=== PATIENT | male | born 1930 | race African-American/Black ===

== ENCOUNTER 2020-12-05 13:13 | Inpatient (IN) ==
[2020-12-05] MEDS ORDERED: PANTOPRAZOLE 40 MG VIAL IV STA (13:24)
[2020-12-05] MEDS ORDERED: ONDANSETRON 4 MG/2 ML VIAL IV STA (13:24)
[2020-12-05] MEDS ORDERED: SODIUM CHLORIDE 0.9% 500 ML IV STA (13:24)
[2020-12-05] MEDS ORDERED: ALBUTEROL/IPRATROPIUM 3 ML NEB RESP TX STA (13:30)
[2020-12-05 14:18] LABS: Albumin 2.1 G/DL (3.4-5.0); Bilirubin,Total 0.4 MG/DL (0.20-1.00); Calcium 7.9 MG/DL (8.5-10.1); Osmolality,Calculated 302.8 MOS/KG (273-304); Potassium 4.2 MMOL/L (3.5-5.1); Total Protein 4.2 G/DL (6.4-8.2)
[2020-12-05] MEDS ORDERED: SODIUM CHLORIDE 0.9% 1,000 ML IV STA (15:42)
[2020-12-05 16:07] LABS: Basophils % 0.1 % (0.0-0.8); Eosinophils % 0.1 % (0.00-10.9); Hematocrit 20.8 VOL% (42.0-52.0); Hemoglobin 6.9 GM/DL (14.0-18.0); Immature Granulocytes % 2.2 %; Immature Granulocytes Absolute 0.38 #; Lymphocytes # 0.4 10*3/uL (1.4-4.0); Lymphocytes % 2.4 % (21.2-54.2); Mean Corpuscular HGB Conc 33.2 GM/DL (32-36); Mean Corpuscular Volume 91.6 FL (87-102); Mean Platelet Volume 11.5 FL (9.6-12.0); Monocytes % 5.3 % (1.7-12.7); NRBC # 0.09 10*3/uL; Neutrophils % 89.9 % (38.7-73.9); Red Blood Count 2.27 MC/CUMM (3.8-5.5); Red Cell Distribution Width 15.5 % (9.3-17.3); White Blood Count 17.2 T/CUMM (4-12)
[2020-12-05 16:08] LABS: Platelet Count 51 T/CUMM (130-400)
[2020-12-05 16:17] LABS: INR 1.2; PT Patient Result 12.8 SECS (10.5-12.0); Partial Thromboplastin Time 26.3 SECS (23.9-33.8)
[2020-12-05 16:25] LABS: Band Neutrophils 1 % (0-10); Platelet Estimate Decreased; Segmented Neutrophils 97 % (50-85); Total Cells Counted 100
[2020-12-05 16:26] LABS: Hypochromasia 1+; Microcytosis 1+
[2020-12-05] MEDS ORDERED: PIPERACILLIN/TAZOBACTAM 3,375 MG in SODIUM CHLORIDE 0.9% 100 ML IV STA (16:37)
[2020-12-05] MEDS ORDERED: ALBUTEROL 2.5 MG/3 ML NEB RESP TX PRN (17:02)
[2020-12-05] MEDS ORDERED: DEXTROSE 50% 25 GM/50 ML VIAL IV PRN (17:02)
[2020-12-05] MEDS ORDERED: ONDANSETRON 4 MG/2 ML VIAL IV PRN (17:02)
[2020-12-05] MEDS ORDERED: hydrALAZINE 20 MG/1 ML VIAL IV PRN (17:02)
[2020-12-05] MEDS ORDERED: GLUCAGON 1 MG VIAL IM PRN (17:02)
[2020-12-05] MEDS ORDERED: SODIUM CHLORIDE 0.9% 1,000 ML IV PRN (17:15)
[2020-12-05] MEDS ORDERED: cefTRIAXone 1,000 MG in SODIUM CHLORIDE 0.9% 100 ML IV SCH (17:30)
[2020-12-05 17:53] LABS: ABG Base Excess -3.8 MMOL/L (-2.5-2.5); ABG HCO3 21.2 MMOL/L (20-26); ABG Oxygen Saturation 97.6 % (95-100); ABG PCO2 36.1 MM HG (35-48); ABG PH 7.371 (7.35-7.45); ABG PO2 92.7 MM HG (80-95); ABG TCO2 19.8 MMOL/L (23-27)
[2020-12-05] MEDS ORDERED: CIPROFLOXACIN INJ 400 MG/200 ML PREMIX IV SCH (18:00)
[2020-12-05] MEDS: SODIUM CHLORIDE 0.9% 1,000 ML IV SCH (19:00)
[2020-12-05] MEDS: ALBUTEROL/IPRATROPIUM 3 ML NEB RESP TX SCH (19:55)
[2020-12-06] MEDS: cefTRIAXone 1,000 MG in SODIUM CHLORIDE 0.9% 100 ML IV SCH ×2 (00:30→18:12)
[2020-12-06] MEDS: metroNIDAZOLE INJ 500 MG/100 ML PREMIX IV SCH ×3 (00:30→16:42)
[2020-12-06] MEDS: AZITHROMYCIN INJ 500 MG in SODIUM CHLORIDE 0.9% 250 ML IV SCH ×2 (00:30→20:39)
[2020-12-06] MEDS: ALBUTEROL/IPRATROPIUM 3 ML NEB RESP TX SCH ×2 (01:13→08:10)
[2020-12-06 06:15] LABS: Basophils % 0.2 % (0.0-0.8); Eosinophils # 0.1 10*3/uL (0.0-0.87); Eosinophils % 0.4 % (0.00-10.9); Hematocrit 29.3 VOL% (42.0-52.0); Immature Granulocytes % 1.6 %; Immature Granulocytes Absolute 0.37 #; Lymphocytes # 0.6 10*3/uL (1.4-4.0); Lymphocytes % 2.8 % (21.2-54.2); Mean Corpuscular HGB Conc 32.1 GM/DL (32-36); Mean Corpuscular Volume 96.4 FL (87-102); NRBC # 0.08 10*3/uL; Red Cell Distribution Width 15.7 % (9.3-17.3)
[2020-12-06 06:28] LABS: Albumin 2.1 G/DL (3.4-5.0); Bilirubin,Total 0.5 MG/DL (0.20-1.00); Calcium 8.1 MG/DL (8.5-10.1); Osmolality,Calculated 299.7 MOS/KG (273-304); Potassium 4.2 MMOL/L (3.5-5.1); Total Protein 4.5 G/DL (6.4-8.2)
[2020-12-06 06:29] LABS: Red Blood Count 3.04 MC/CUMM (3.8-5.5)
[2020-12-06 06:31] LABS: White Blood Count 22.8 T/CUMM (4-12)
[2020-12-06 06:32] LABS: Hemoglobin 9.4 GM/DL (14.0-18.0)
[2020-12-06 06:33] LABS: Platelet Count 41 T/CUMM (130-400)
[2020-12-06 06:59] LABS: Band Neutrophils 1 % (0-10); Lymphocytes 5 % (20-55); Platelet Estimate Decreased; Segmented Neutrophils 90 % (50-85); Total Cells Counted 100
[2020-12-06] MEDS: PANTOPRAZOLE 40 MG VIAL IV SCH (08:43)
[2020-12-06] MEDS: SODIUM CHLORIDE 0.9% 1,000 ML IV SCH (18:13)
[2020-12-07] MEDS: metroNIDAZOLE INJ 500 MG/100 ML PREMIX IV SCH ×2 (00:41→09:13)
[2020-12-07] MEDS: MORPHINE 2 MG/1 ML SYRINGE IV PRN ×2 (00:45→20:30)
[2020-12-07] MEDS: SODIUM CHLORIDE 0.9% 1,000 ML IV SCH ×2 (04:38→13:41)
[2020-12-07 06:16] LABS: Bilirubin,Total 0.6 MG/DL (0.20-1.00); Calcium 8.1 MG/DL (8.5-10.1); Osmolality,Calculated 298.4 MOS/KG (273-304); Potassium 4.9 MMOL/L (3.5-5.1); Total Protein 4.5 G/DL (6.4-8.2)
[2020-12-07] MEDS: PANTOPRAZOLE 40 MG VIAL IV SCH (09:14)
[2020-12-07 09:42] LABS: PT Patient Result 11.6 SECS (10.5-12.0); Partial Thromboplastin Time 26.8 SECS (23.9-33.8)
[2020-12-07] MEDS: FONDAPARINUX 7.5 MG/0.6 ML SYRINGE SUBCUT SCH (11:05)
[2020-12-07] MEDS: ASCORBIC ACID 500 MG TABLET PO SCH ×2 (16:15→16:57)
[2020-12-07] MEDS: PIPERACILLIN/TAZOBACTAM 3,375 MG in SODIUM CHLORIDE 0.9% 100 ML IV SCH (16:17)
[2020-12-07] MEDS: CHOLECALCIFEROL 1,000 UNIT TABLET PO SCH (16:57)
[2020-12-07] MEDS: ZINC GLUCONATE 50 MG TABLET PO SCH (17:07)
[2020-12-07] MEDS: BUDESONIDE/FORMOTEROL 160-4.5 INHALER 6 GM INH SCH (20:24)
[2020-12-07] MEDS: TAMSULOSIN 0.4 MG CAPSULE PO SCH (20:30)
[2020-12-07] MEDS: SIMVASTATIN 10 MG TABLET PO SCH (20:30)
[2020-12-07] MEDS: carvediloL 25 MG TABLET PO SCH (20:30)
[2020-12-08] MEDS: PIPERACILLIN/TAZOBACTAM 3,375 MG in SODIUM CHLORIDE 0.9% 100 ML IV SCH ×4 (00:44→23:55)
[2020-12-08 04:47] LABS: Basophils % 0.1 % (0.0-0.8); Eosinophils # 0.5 10*3/uL (0.0-0.87); Eosinophils % 4.2 % (0.00-10.9); Hematocrit 29.4 VOL% (42.0-52.0); Hemoglobin 9.2 GM/DL (14.0-18.0); Immature Granulocytes % 0.9 %; Immature Granulocytes Absolute 0.11 #; Lymphocytes # 0.6 10*3/uL (1.4-4.0); Lymphocytes % 4.7 % (21.2-54.2); Mean Corpuscular HGB Conc 31.3 GM/DL (32-36); Mean Corpuscular Volume 92.7 FL (87-102); Mean Platelet Volume 10.4 FL (9.6-12.0); Monocytes % 6.9 % (1.7-12.7); Neutrophils % 83.2 % (38.7-73.9); Red Blood Count 3.17 MC/CUMM (3.8-5.5); Red Cell Distribution Width 17.2 % (9.3-17.3)
[2020-12-08 04:52] LABS: Platelet Count 60 T/CUMM (130-400); White Blood Count 12.1 T/CUMM (4-12)
[2020-12-08 05:11] LABS: Albumin 2.1 G/DL (3.4-5.0); Bilirubin,Total 0.7 MG/DL (0.20-1.00); Calcium 8.1 MG/DL (8.5-10.1); Ferritin 73.3 ng/mL (26-388); Osmolality,Calculated 298.4 MOS/KG (273-304); Potassium 3.9 MMOL/L (3.5-5.1); Total Protein 4.4 G/DL (6.4-8.2)
[2020-12-08 05:14] LABS: Eosinophils 5 % (0-10); Hypochromasia Slight; Lymphocytes 5 % (20-55); Microcytosis Slight; Platelet Estimate Decreased; Segmented Neutrophils 84 % (50-85); Total Cells Counted 100
[2020-12-08] MEDS: IPRATROPIUM 500 MCG/2.5 ML NEB RESP TX SCH ×2 (08:00→12:00)
[2020-12-08] MEDS: FONDAPARINUX 7.5 MG/0.6 ML SYRINGE SUBCUT SCH (08:23)
[2020-12-08] MEDS: ZINC GLUCONATE 50 MG TABLET PO SCH (08:23)
[2020-12-08] MEDS: CHOLECALCIFEROL 1,000 UNIT TABLET PO SCH (08:23)
[2020-12-08] MEDS: TAMSULOSIN 0.4 MG CAPSULE PO SCH ×2 (08:23→20:24)
[2020-12-08] MEDS: PANTOPRAZOLE 40 MG VIAL IV SCH (08:23)
[2020-12-08] MEDS: ASCORBIC ACID 500 MG TABLET PO SCH (08:23)
[2020-12-08] MEDS: carvediloL 25 MG TABLET PO SCH ×2 (08:23→20:24)
[2020-12-08] MEDS: amLODIPine 10 MG TABLET PO SCH (08:24)
[2020-12-08] MEDS: BUDESONIDE/FORMOTEROL 160-4.5 INHALER 6 GM INH SCH ×2 (08:25→20:24)
[2020-12-08] MEDS ORDERED: SODIUM CHLORIDE IV SCH (15:00)
[2020-12-08] MEDS ORDERED: STERILE WATER IV SCH (15:00)
[2020-12-08] MEDS: STERILE WATER IV SCH (20:24)
[2020-12-08] MEDS: SODIUM CHLORIDE IV SCH (20:24)
[2020-12-08] MEDS: SIMVASTATIN 10 MG TABLET PO SCH (20:24)
[2020-12-09 04:30] LABS: Basophils % 0.1 % (0.0-0.8); Eosinophils # 0.5 10*3/uL (0.0-0.87); Eosinophils % 4.7 % (0.00-10.9); Hematocrit 27.3 VOL% (42.0-52.0); Hemoglobin 8.6 GM/DL (14.0-18.0); Immature Granulocytes % 1.1 %; Immature Granulocytes Absolute 0.12 #; Lymphocytes # 0.8 10*3/uL (1.4-4.0); Lymphocytes % 7.1 % (21.2-54.2); Mean Corpuscular HGB Conc 31.5 GM/DL (32-36); Mean Corpuscular Volume 93.2 FL (87-102); Mean Platelet Volume 10.6 FL (9.6-12.0); Monocytes % 7.2 % (1.7-12.7); Neutrophils % 79.8 % (38.7-73.9); Red Blood Count 2.93 MC/CUMM (3.8-5.5); Red Cell Distribution Width 17.2 % (9.3-17.3); White Blood Count 10.8 T/CUMM (4-12)
[2020-12-09 04:33] LABS: Platelet Count 60 T/CUMM (130-400)
[2020-12-09 04:56] LABS: Hypochromasia 1+; Microcytosis 1+; Platelet Estimate Decreased
[2020-12-09 05:04] LABS: Bilirubin,Total 0.6 MG/DL (0.20-1.00); Calcium 8.1 MG/DL (8.5-10.1); Osmolality,Calculated 295.4 MOS/KG (273-304); Potassium 3.7 MMOL/L (3.5-5.1); Total Protein 4.3 G/DL (6.4-8.2)
[2020-12-09] MEDS: IPRATROPIUM 500 MCG/2.5 ML NEB RESP TX SCH (07:05)
[2020-12-09] MEDS: SODIUM CHLORIDE 23.4% CONC INJ 38.5 MEQ in STERILE WATER INJ 1,000 ML IV SCH ×2 (09:06→17:31)
[2020-12-09] MEDS: FONDAPARINUX 7.5 MG/0.6 ML SYRINGE SUBCUT SCH (09:06)
[2020-12-09] MEDS: TAMSULOSIN 0.4 MG CAPSULE PO SCH ×2 (09:07→21:43)
[2020-12-09] MEDS: ZINC GLUCONATE 50 MG TABLET PO SCH (09:07)
[2020-12-09] MEDS: carvediloL 25 MG TABLET PO SCH ×2 (09:07→21:43)
[2020-12-09] MEDS: CHOLECALCIFEROL 1,000 UNIT TABLET PO SCH (09:07)
[2020-12-09] MEDS: ASCORBIC ACID 500 MG TABLET PO SCH (09:07)
[2020-12-09] MEDS: PANTOPRAZOLE 40 MG VIAL IV SCH (09:08)
[2020-12-09] MEDS: BUDESONIDE/FORMOTEROL 160-4.5 INHALER 6 GM INH SCH ×2 (09:08→21:00)
[2020-12-09] MEDS: amLODIPine 10 MG TABLET PO SCH (09:08)
[2020-12-09] MEDS: PIPERACILLIN/TAZOBACTAM 3,375 MG in SODIUM CHLORIDE 0.9% 100 ML IV SCH ×2 (13:09→21:31)
[2020-12-09] MEDS: SIMVASTATIN 10 MG TABLET PO SCH (21:42)
[2020-12-10] MEDS: SODIUM CHLORIDE 23.4% CONC INJ 38.5 MEQ in STERILE WATER INJ 1,000 ML IV SCH ×2 (03:37→14:41)
[2020-12-10 05:30] LABS: Basophils % 0.1 % (0.0-0.8); Eosinophils # 0.5 10*3/uL (0.0-0.87); Eosinophils % 4.2 % (0.00-10.9); Hematocrit 25.3 VOL% (42.0-52.0); Immature Granulocytes % 1.6 %; Immature Granulocytes Absolute 0.19 #; Lymphocytes # 0.7 10*3/uL (1.4-4.0); Lymphocytes % 6.3 % (21.2-54.2); Mean Corpuscular HGB Conc 31.6 GM/DL (32-36); Mean Corpuscular Volume 94.4 FL (87-102); Mean Platelet Volume 11.5 FL (9.6-12.0); Neutrophils % 79.8 % (38.7-73.9); Platelet Count 64 T/CUMM (130-400); Red Blood Count 2.68 MC/CUMM (3.8-5.5); Red Cell Distribution Width 17.3 % (9.3-17.3); White Blood Count 11.6 T/CUMM (4-12)
[2020-12-10 05:59] LABS: Albumin 2.1 G/DL (3.4-5.0); Bilirubin,Total 0.8 MG/DL (0.20-1.00); Calcium 8.1 MG/DL (8.5-10.1); Osmolality,Calculated 290.7 MOS/KG (273-304); Potassium 3.8 MMOL/L (3.5-5.1); Total Protein 4.2 G/DL (6.4-8.2)
[2020-12-10] MEDS: PANTOPRAZOLE 40 MG VIAL IV SCH (09:58)
[2020-12-10] MEDS: TAMSULOSIN 0.4 MG CAPSULE PO SCH ×2 (09:58→20:20)
[2020-12-10] MEDS: amLODIPine 10 MG TABLET PO SCH (09:58)
[2020-12-10] MEDS: ASCORBIC ACID 500 MG TABLET PO SCH (09:58)
[2020-12-10] MEDS: ZINC GLUCONATE 50 MG TABLET PO SCH (09:58)
[2020-12-10] MEDS: CHOLECALCIFEROL 1,000 UNIT TABLET PO SCH (09:58)
[2020-12-10] MEDS: carvediloL 25 MG TABLET PO SCH ×2 (09:59→20:20)
[2020-12-10] MEDS: BUDESONIDE/FORMOTEROL 160-4.5 INHALER 6 GM INH SCH ×2 (10:00→20:20)
[2020-12-10] MEDS ORDERED: TUBERCULIN SKIN TEST 0.1 ML SYRINGE INTRADERM ONE (11:09)
[2020-12-10] MEDS: FONDAPARINUX 7.5 MG/0.6 ML SYRINGE SUBCUT SCH (17:46)
[2020-12-10] MEDS: SIMVASTATIN 10 MG TABLET PO SCH (20:20)
[2020-12-10] MEDS: PIPERACILLIN/TAZOBACTAM 3,375 MG in SODIUM CHLORIDE 0.9% 100 ML IV SCH ×3 (20:20→23:18)
[2020-12-11] MEDS: PIPERACILLIN/TAZOBACTAM 3,375 MG in SODIUM CHLORIDE 0.9% 100 ML IV SCH ×3 (05:05→21:04)
[2020-12-11 05:29] LABS: Basophils % 0.1 % (0.0-0.8); Eosinophils # 0.4 10*3/uL (0.0-0.87); Eosinophils % 3.5 % (0.00-10.9); Hematocrit 22.5 VOL% (42.0-52.0); Hemoglobin 7.2 GM/DL (14.0-18.0); Immature Granulocytes % 2.1 %; Immature Granulocytes Absolute 0.22 #; Lymphocytes # 0.7 10*3/uL (1.4-4.0); Lymphocytes % 6.3 % (21.2-54.2); Mean Corpuscular Volume 93.4 FL (87-102); Mean Platelet Volume 11.3 FL (9.6-12.0); Monocytes % 8.8 % (1.7-12.7); NRBC # 0.03 10*3/uL; Neutrophils % 79.2 % (38.7-73.9); Red Blood Count 2.41 MC/CUMM (3.8-5.5); Red Cell Distribution Width 17.3 % (9.3-17.3); White Blood Count 10.7 T/CUMM (4-12)
[2020-12-11 05:33] LABS: Platelet Count 68 T/CUMM (130-400)
[2020-12-11 05:51] LABS: Eosinophils 1 % (0-10); Hypochromasia 1+; Lymphocytes 6 % (20-55); Microcytosis 1+; Ovalocytes Slight; Platelet Estimate Decreased; Segmented Neutrophils 90 % (50-85); Total Cells Counted 100
[2020-12-11 06:01] LABS: Calcium 7.9 MG/DL (8.5-10.1); Potassium 3.5 MMOL/L (3.5-5.1)
[2020-12-11] MEDS ORDERED: SODIUM CHLORIDE 0.9% 1,000 ML IV PRN (08:58)
[2020-12-11] MEDS: carvediloL 25 MG TABLET PO SCH ×2 (09:45→21:03)
[2020-12-11] MEDS: PANTOPRAZOLE 40 MG VIAL IV SCH (09:45)
[2020-12-11] MEDS: ASCORBIC ACID 500 MG TABLET PO SCH (09:45)
[2020-12-11] MEDS: amLODIPine 10 MG TABLET PO SCH (09:45)
[2020-12-11] MEDS: CHOLECALCIFEROL 1,000 UNIT TABLET PO SCH (09:45)
[2020-12-11] MEDS: BUDESONIDE/FORMOTEROL 160-4.5 INHALER 6 GM INH SCH ×2 (09:45→21:34)
[2020-12-11] MEDS: ZINC GLUCONATE 50 MG TABLET PO SCH (09:45)
[2020-12-11] MEDS: TAMSULOSIN 0.4 MG CAPSULE PO SCH ×2 (09:45→21:04)
[2020-12-11] MEDS: FONDAPARINUX 7.5 MG/0.6 ML SYRINGE SUBCUT SCH (10:16)
[2020-12-11] MEDS: IPRATROPIUM 500 MCG/2.5 ML NEB RESP TX SCH ×4 (19:54→22:17)
[2020-12-11] MEDS: SODIUM CHLORIDE 23.4% CONC INJ 38.5 MEQ in STERILE WATER INJ 1,000 ML IV SCH ×2 (19:55→21:33)
[2020-12-11] MEDS: SIMVASTATIN 10 MG TABLET PO SCH (21:03)
[2020-12-11] MEDS: SODIUM CHLORIDE 0.9% 1,000 ML IV SCH ×2 (22:18→22:19)
[2020-12-11] MEDS: SODIUM CHLORIDE IV SCH (22:19)
[2020-12-11] MEDS: STERILE WATER IV SCH (22:19)
[2020-12-12] MEDS: IPRATROPIUM 500 MCG/2.5 ML NEB RESP TX SCH ×5 (04:28→19:40)
[2020-12-12 05:21] LABS: Basophils % 0.1 % (0.0-0.8); Eosinophils # 0.3 10*3/uL (0.0-0.87); Eosinophils % 2.6 % (0.00-10.9); Hematocrit 22.1 VOL% (42.0-52.0); Hemoglobin 7.1 GM/DL (14.0-18.0); Immature Granulocytes % 2.2 %; Immature Granulocytes Absolute 0.24 #; Lymphocytes # 0.6 10*3/uL (1.4-4.0); Lymphocytes % 5.5 % (21.2-54.2); Mean Corpuscular HGB Conc 32.1 GM/DL (32-36); Mean Corpuscular Volume 94.4 FL (87-102); Mean Platelet Volume 11.3 FL (9.6-12.0); Monocytes % 7.6 % (1.7-12.7); NRBC # 0.02 10*3/uL; Platelet Count 71 T/CUMM (130-400); Red Blood Count 2.34 MC/CUMM (3.8-5.5); Red Cell Distribution Width 17.9 % (9.3-17.3); White Blood Count 11.2 T/CUMM (4-12)
[2020-12-12] MEDS: PIPERACILLIN/TAZOBACTAM 3,375 MG in SODIUM CHLORIDE 0.9% 100 ML IV SCH ×3 (05:25→22:00)
[2020-12-12 05:41] LABS: Osmolality,Calculated 277.5 MOS/KG (273-304); Potassium 3.5 MMOL/L (3.5-5.1)
[2020-12-12 05:42] LABS: Hypochromasia 1+; Microcytosis 1+; Platelet Estimate Decreased
[2020-12-12] MEDS: SODIUM CHLORIDE 23.4% CONC INJ 38.5 MEQ in STERILE WATER INJ 1,000 ML IV SCH (05:55)
[2020-12-12] MEDS ORDERED: SODIUM CHLORIDE 0.9% 1,000 ML IV PRN (08:13)
[2020-12-12] MEDS: ZINC GLUCONATE 50 MG TABLET PO SCH (09:21)
[2020-12-12] MEDS: PANTOPRAZOLE 40 MG VIAL IV SCH ×2 (09:21→22:00)
[2020-12-12] MEDS: amLODIPine 10 MG TABLET PO SCH (09:21)
[2020-12-12] MEDS: ASCORBIC ACID 500 MG TABLET PO SCH (09:21)
[2020-12-12] MEDS: TAMSULOSIN 0.4 MG CAPSULE PO SCH ×2 (09:21→22:00)
[2020-12-12] MEDS: CHOLECALCIFEROL 1,000 UNIT TABLET PO SCH (09:21)
[2020-12-12] MEDS: carvediloL 25 MG TABLET PO SCH ×2 (09:21→22:00)
[2020-12-12] MEDS: BUDESONIDE/FORMOTEROL 160-4.5 INHALER 6 GM INH SCH ×2 (09:26→22:01)
[2020-12-12] MEDS: SIMVASTATIN 10 MG TABLET PO SCH (22:00)
[2020-12-13] MEDS: PIPERACILLIN/TAZOBACTAM 3,375 MG in SODIUM CHLORIDE 0.9% 100 ML IV SCH ×3 (05:40→21:14)
[2020-12-13 06:00] LABS: Basophils % 0.1 % (0.0-0.8); Eosinophils # 0.2 10*3/uL (0.0-0.87); Eosinophils % 2.4 % (0.00-10.9); Hematocrit 29.6 VOL% (42.0-52.0); Hemoglobin 9.6 GM/DL (14.0-18.0); Immature Granulocytes % 1.6 %; Immature Granulocytes Absolute 0.16 #; Lymphocytes # 0.6 10*3/uL (1.4-4.0); Lymphocytes % 5.5 % (21.2-54.2); Mean Corpuscular HGB Conc 32.4 GM/DL (32-36); Mean Corpuscular Volume 90.8 FL (87-102); Mean Platelet Volume 11.4 FL (9.6-12.0); Monocytes % 7.1 % (1.7-12.7); Neutrophils % 83.3 % (38.7-73.9); Platelet Count 87 T/CUMM (130-400); Red Blood Count 3.26 MC/CUMM (3.8-5.5); Red Cell Distribution Width 16.9 % (9.3-17.3); White Blood Count 10.1 T/CUMM (4-12)
[2020-12-13 06:23] LABS: Calcium 8.2 MG/DL (8.5-10.1); Osmolality,Calculated 277.4 MOS/KG (273-304); Potassium 3.7 MMOL/L (3.5-5.1)
[2020-12-13] MEDS: IPRATROPIUM 500 MCG/2.5 ML NEB RESP TX SCH ×4 (07:25→19:44)
[2020-12-13] MEDS ORDERED: propofoL 200 MG/20 ML VIAL IV ONE (08:18)
[2020-12-13] MEDS ORDERED: LIDOCAINE 2% 5 ML VIAL ONE (08:18)
[2020-12-13] MEDS ORDERED: ETOMIDATE 20 MG/10 ML VIAL IV ONE (08:18)
[2020-12-13] MEDS: SODIUM CHLORIDE 23.4% CONC INJ 38.5 MEQ in STERILE WATER INJ 1,000 ML IV SCH ×3 (08:33→23:25)
[2020-12-13] MEDS: SODIUM CHLORIDE 0.9% 1,000 ML IV SCH (08:56)
[2020-12-13] MEDS: TAMSULOSIN 0.4 MG CAPSULE PO SCH ×2 (09:55→21:13)
[2020-12-13] MEDS: ASCORBIC ACID 500 MG TABLET PO SCH (09:55)
[2020-12-13] MEDS: carvediloL 25 MG TABLET PO SCH ×2 (09:56→21:13)
[2020-12-13] MEDS: amLODIPine 10 MG TABLET PO SCH (09:56)
[2020-12-13] MEDS: ZINC GLUCONATE 50 MG TABLET PO SCH (09:56)
[2020-12-13] MEDS: CHOLECALCIFEROL 1,000 UNIT TABLET PO SCH (09:56)
[2020-12-13] MEDS: PANTOPRAZOLE 40 MG VIAL IV SCH ×3 (09:57→21:14)
[2020-12-13] MEDS: BUDESONIDE/FORMOTEROL 160-4.5 INHALER 6 GM INH SCH ×2 (09:57→21:14)
[2020-12-13] MEDS: APIXABAN 5 MG TABLET PO SCH (21:13)
[2020-12-13] MEDS: SIMVASTATIN 10 MG TABLET PO SCH (21:13)
[2020-12-14] MEDS: PIPERACILLIN/TAZOBACTAM 3,375 MG in SODIUM CHLORIDE 0.9% 100 ML IV SCH ×2 (05:32→12:30)
[2020-12-14 06:58] LABS: Basophils % 0.1 % (0.0-0.8); Eosinophils # 0.3 10*3/uL (0.0-0.87); Eosinophils % 2.4 % (0.00-10.9); Hematocrit 28.4 VOL% (42.0-52.0); Hemoglobin 9.4 GM/DL (14.0-18.0); Immature Granulocytes % 1.3 %; Immature Granulocytes Absolute 0.13 #; Lymphocytes # 0.6 10*3/uL (1.4-4.0); Lymphocytes % 6.1 % (21.2-54.2); Mean Corpuscular HGB Conc 33.1 GM/DL (32-36); Mean Corpuscular Volume 90.4 FL (87-102); Mean Platelet Volume 10.9 FL (9.6-12.0); Monocytes % 8.2 % (1.7-12.7); Neutrophils % 81.9 % (38.7-73.9); Platelet Count 96 T/CUMM (130-400); Red Blood Count 3.14 MC/CUMM (3.8-5.5); Red Cell Distribution Width 17.8 % (9.3-17.3); White Blood Count 10.3 T/CUMM (4-12)
[2020-12-14 07:14] LABS: Osmolality,Calculated 280.1 MOS/KG (273-304)
[2020-12-14] MEDS: IPRATROPIUM 500 MCG/2.5 ML NEB RESP TX SCH ×4 (07:20→19:09)
[2020-12-14 07:42] LABS: Anisocytosis 2+; Burr Cells Few; Platelet Estimate Decreased
[2020-12-14 07:43] LABS: Polychromasia Slight
[2020-12-14] MEDS: TAMSULOSIN 0.4 MG CAPSULE PO SCH ×2 (09:38→20:46)
[2020-12-14] MEDS: CHOLECALCIFEROL 1,000 UNIT TABLET PO SCH (09:38)
[2020-12-14] MEDS: ZINC GLUCONATE 50 MG TABLET PO SCH (09:38)
[2020-12-14] MEDS: amLODIPine 10 MG TABLET PO SCH (09:38)
[2020-12-14] MEDS: APIXABAN 5 MG TABLET PO SCH ×2 (09:38→20:46)
[2020-12-14] MEDS: PANTOPRAZOLE 40 MG VIAL IV SCH ×3 (09:38→20:46)
[2020-12-14] MEDS: ASCORBIC ACID 500 MG TABLET PO SCH (09:38)
[2020-12-14] MEDS: carvediloL 25 MG TABLET PO SCH ×2 (09:38→20:46)
[2020-12-14] MEDS: BUDESONIDE/FORMOTEROL 160-4.5 INHALER 6 GM INH SCH ×2 (09:39→20:47)
[2020-12-14] MEDS: SODIUM CHLORIDE 0.9% 1,000 ML IV SCH (10:01)
[2020-12-14] MEDS: POTASSIUM CHLORIDE 20 MEQ TABLET PO PRN ×4 (10:25→16:26)
[2020-12-14] MEDS: SIMVASTATIN 10 MG TABLET PO SCH (20:46)
[2020-12-14] MEDS: MORPHINE 2 MG/1 ML SYRINGE IV PRN (20:52)
[2020-12-15] MEDS: SODIUM CHLORIDE 23.4% CONC INJ 38.5 MEQ in STERILE WATER INJ 1,000 ML IV SCH ×3 (04:55→10:02)
[2020-12-15 05:42] LABS: Basophils % 0.2 % (0.0-0.8); Eosinophils # 0.2 10*3/uL (0.0-0.87); Eosinophils % 1.9 % (0.00-10.9); Hematocrit 29.8 VOL% (42.0-52.0); Hemoglobin 9.8 GM/DL (14.0-18.0); Immature Granulocytes % 1.3 %; Immature Granulocytes Absolute 0.12 #; Lymphocytes # 0.8 10*3/uL (1.4-4.0); Lymphocytes % 7.8 % (21.2-54.2); Mean Corpuscular HGB Conc 32.9 GM/DL (32-36); Mean Platelet Volume 11.1 FL (9.6-12.0); Monocytes % 7.4 % (1.7-12.7); Neutrophils % 81.4 % (38.7-73.9); Red Blood Count 3.24 MC/CUMM (3.8-5.5); Red Cell Distribution Width 18.2 % (9.3-17.3); White Blood Count 9.6 T/CUMM (4-12)
[2020-12-15 05:56] LABS: Platelet Count 96 T/CUMM (130-400)
[2020-12-15 06:01] LABS: Calcium 8.4 MG/DL (8.5-10.1); Osmolality,Calculated 280.1 MOS/KG (273-304); Potassium 3.7 MMOL/L (3.5-5.1)
[2020-12-15 06:23] LABS: Anisocytosis 2+; Hypochromasia 1+; Microcytosis 2+; Platelet Estimate Decreased
[2020-12-15 06:24] LABS: Polychromasia Few
[2020-12-15] MEDS: IPRATROPIUM 500 MCG/2.5 ML NEB RESP TX SCH ×4 (07:40→19:55)
[2020-12-15] MEDS: SODIUM CHLORIDE 0.9% 1,000 ML IV SCH (09:30)
[2020-12-15] MEDS: amLODIPine 10 MG TABLET PO SCH (09:49)
[2020-12-15] MEDS: ZINC GLUCONATE 50 MG TABLET PO SCH (09:49)
[2020-12-15] MEDS: ASCORBIC ACID 500 MG TABLET PO SCH (09:49)
[2020-12-15] MEDS: CHOLECALCIFEROL 1,000 UNIT TABLET PO SCH (09:49)
[2020-12-15] MEDS: POTASSIUM CHLORIDE 20 MEQ TABLET PO PRN (09:49)
[2020-12-15] MEDS: carvediloL 25 MG TABLET PO SCH ×2 (09:49→20:36)
[2020-12-15] MEDS: PANTOPRAZOLE 40 MG VIAL IV SCH ×3 (09:49→20:36)
[2020-12-15] MEDS: TAMSULOSIN 0.4 MG CAPSULE PO SCH ×2 (09:50→20:36)
[2020-12-15] MEDS: BUDESONIDE/FORMOTEROL 160-4.5 INHALER 6 GM INH SCH ×2 (09:55→20:36)
[2020-12-15] MEDS: APIXABAN 5 MG TABLET PO SCH ×2 (11:55→20:35)
[2020-12-15] MEDS: MORPHINE 2 MG/1 ML SYRINGE IV PRN (16:19)
[2020-12-15] MEDS: SIMVASTATIN 10 MG TABLET PO SCH (20:35)
[2020-12-16] MEDS: IPRATROPIUM 500 MCG/2.5 ML NEB RESP TX SCH ×2 (07:53→11:20)
[2020-12-16 08:07] VITALS: BP 142/80
[2020-12-16] MEDS: CHOLECALCIFEROL 1,000 UNIT TABLET PO SCH (09:08)
[2020-12-16] MEDS: amLODIPine 10 MG TABLET PO SCH (09:08)
[2020-12-16] MEDS: TAMSULOSIN 0.4 MG CAPSULE PO SCH (09:08)
[2020-12-16] MEDS: POTASSIUM CHLORIDE 20 MEQ TABLET PO PRN (09:08)
[2020-12-16] MEDS: APIXABAN 5 MG TABLET PO SCH (09:08)
[2020-12-16] MEDS: ASCORBIC ACID 500 MG TABLET PO SCH (09:08)
[2020-12-16] MEDS: BUDESONIDE/FORMOTEROL 160-4.5 INHALER 6 GM INH SCH (09:08)
[2020-12-16] MEDS: carvediloL 25 MG TABLET PO SCH (09:08)
[2020-12-16] MEDS: ZINC GLUCONATE 50 MG TABLET PO SCH (09:08)
[2020-12-16] MEDS: PANTOPRAZOLE 40 MG VIAL IV SCH (09:34)
== END 2020-12-16 12:25 | DRG 177 ==
LOC: N.ED 13:13 → SUATTDRO 17:03 → N.EDINP 17:03 → N.CC 20:07 → N.2E 20:37 → N.3E 12-11 18:05
PROVIDERS: ADMIT Internal Medicine; ATTEND Internal Medicine Geriatric Medicine